=== PATIENT | male | born 1970 | race Caucasian/White ===

== ENCOUNTER 2018-12-05 16:38 | Emergency (ER) | payer OTHER ==
[2018-12-05] MEDS ORDERED: SODIUM CHLORIDE 0.9% 500 ML 500 ML IV STA (16:55)
[2018-12-05] MEDS ORDERED: MORPHINE SULFATE 4 MG/ML SYRINGE IV STA (16:55)
[2018-12-05] MEDS ORDERED: ONDANSETRON 4 MG/2 ML VIAL IVP STA (16:55)
--- NOTE | 2018-12-05 16:56 | ED ---
Abdominal Pain HPI - General Chief Complaint: Abdominal Pain Stated Complaint: ABDOMINAL PAIN Time Seen by Provider: 12/05/18 16:48 Source: patient Mode of arrival: ambulatory Limitations: no limitations - History of Present Illness Initial Comments: 48-year-old male presenting today for chief complaint of right upper quadrant abdominal pain he states the past 4 days he has had right upper quadrant abdominal pain that began after stretching he states he did not feel pop is definitely musculoskeletal. He states he developed a sensation which was more crampy in nature on and off the past few months but did not think much of it. He denies noticing a specific pattern with ingestion of food or liquids. He states it has been constant since Thursday states it is sharp stabbing. He denies any upper chest pain shortness of breath. There is no radiation the pain he states he has had a previous appendectomy. She denies any issues of the gallbladder to his knowledge. He denies any fever or chills night sweats cough he denies any nausea vomiting or diarrhea. Patient states his last bowel movement was yesterday states it was normal. He denies any melena or hematochezia. Remaining review of systems negative upon arrival patient appears nontoxic, does appear uncomfortable holding the right upper quadrant. Patient was sent for further evaluation from a urgent care facility where he initially presented. She denies history of peptic ulcer disease or chronic NSAID use. Patient denies history of alcohol abuse. Patient denies fever but was febrile upon arrival. - Related Data Previous Rx's Medication Instructions Recorded Amoxic-Pot Clav 875-125Mg 1 tab PO Q12HR 7 Days #14 tablet 12/05/18 [Augmentin 875-125] Ciprofloxacin HCl [Cipro] 500 mg PO BID 7 Days #14 tab 12/05/18 metroNIDAZOLE [Flagyl] 500 mg PO Q8HR 7 Days #21 tab 12/05/18 Allergies Allergy/AdvReac Type Severity Reaction Status Date / Time No Known Allergies Allergy Verified 12/05/18 16:47 Review of Systems ROS Statement: Those systems with pertinent positive or pertinent negative responses have been documented in the HPI. ROS Other: All systems not noted in ROS Statement are negative. Past Medical History Past Medical History: No Reported History History of Any Multi-Drug Resistant Organisms: None Reported Past Surgical History: Appendectomy Past Psychological History: No Psychological Hx Reported Smoking Status: Never smoker Past Alcohol Use History: None Reported Past Drug Use History: None Reported General Exam - General Exam Comments Initial Comments: General: The patient is awake and alert, in no distress, and does not appear acutely ill. Eye: Pupils are equal, round and reactive to light, extra-ocular movements are intact. No nystagmus. There is normal conjunctiva bilaterally. No signs of icterus. Ears, nose, mouth and throat: There are moist mucous membranes and no oral lesions. Neck: The neck is supple, there is no tenderness or JVD. Cardiovascular: There is a regular rate and rhythm. No murmur, rub or gallop is appreciated. Respiratory: Lungs are clear to auscultation, respirations are non-labored, breath sounds are equal. No wheezes, stridor, rales, or rhonchi. Gastrointestinal: Soft, non-distended, patient is tender in the right upper quadrant the abdomen positive Magallon sign without masses or organomegaly noted. There is no rebound or guarding present. No CVA tenderness. Bowel sounds are unremarkable. Musculoskeletal: Normal ROM, no tenderness. Strength 5/5. Sensation intact. Pulses equal bilaterally 2+. Neurological: A&O x 3. CN II-XII intact, There are no obvious motor or sensory deficits. Coordination appears grossly intact. Speech is normal. Skin: Skin is warm and dry and no rashes or lesions are noted. Psychiatric: Cooperative, appropriate mood & affect, normal judgment. Limitations: no limitations Course Vital Signs 12/05/18 12/05/18 12/05/18 16:45 17:51 18:40 Temperature 98.7 F 100.4 F H 100.5 F H Pulse Rate 103 H 92 88 Respiratory 18 16 16 Rate Blood Pressure 137/99 111/74 127/79 O2 Sat by Pulse 98 96 95 Oximetry 12/05/18 20:13 Temperature 100 F H Pulse Rate 81 Respiratory 16 Rate Blood Pressure 126/80 O2 Sat by Pulse 95 Oximetry Medical Decision Making - Medical Decision Making 48-year-old male presented with upper quadrant abdominal pain. Patient had low- grade fever. Patient is mild leukocytosis. Patient is tender on examination. Ultrasound revealed no evidence of gallbladder disease. This was initial impression given physical examination history. However on CT the abdomen and pelvis there was a colitis present at the fracture which happens to be on the right side the abdomen for this patient anatomically. This correlates clinically and anatomically with patient's area of pain. Patient has mild fat stranding. There is no evidence of dense of pneumoperitoneum or perforation. Patient's pain was controlled Toradol emergency department. At this time after reviewing imaging studies with attending provider who did evaluate patient in person and recommended discharge of patient with outpatient oral antibiotics regime. Patient is given a starter pack of Tylenol No. 3 for pain management proper use was discussed. I discussed return parameters including risk of perforation with patient patient is to be limited to emergency department for worsening pain. Patient verbalized understanding of importance of return parameters as well as outpatient follow-up with gastroenterology. Pt discharged he was agreeable with plan preferring outpatient treatment. - Lab Data Result diagrams: 12/05/18 17:12 12/05/18 17:12 Lab Results 12/05/18 12/05/18 12/05/18 Range/Units 17:10 17:12 17:12 WBC 12.9 H (3.8-10.6) k/uL RBC 4.94 (4.30-5.90) m/uL Hgb 14.7 (13.0-17.5) gm/dL Hct 43.6 (39.0-53.0) % MCV 88.3 (80.0-100.0) fL MCH 29.8 (25.0-35.0) pg MCHC 33.7 (31.0-37.0) g/dL RDW 13.0 (11.5-15.5) % Plt Count 279 (150-450) k/uL Neutrophils % 73 % Lymphocytes % 19 % Monocytes % 6 % Eosinophils % 1 % Basophils % 0 % Neutrophils # 9.3 H (1.3-7.7) k/uL Lymphocytes # 2.4 (1.0-4.8) k/uL Monocytes # 0.8 (0-1.0) k/uL Eosinophils # 0.1 (0-0.7) k/uL Basophils # 0.1 (0-0.2) k/uL Sodium 139 (137-145) mmol/L Potassium 4.4 (3.5-5.1) mmol/L Chloride 105 (98-107) mmol/L Carbon Dioxide 24 (22-30) mmol/L Anion Gap 10 mmol/L BUN 26 H (9-20) mg/dL Creatinine 1.30 H (0.66-1.25) mg/dL Est GFR (CKD-EPI)AfAm 74 (>60 ml/min/1.73 sqM) Est GFR (CKD-EPI)NonAf 64 (>60 ml/min/1.73 sqM) Glucose 100 H (74-99) mg/dL Plasma Lactic Acid Trevor (0.7-2.0) mmol/L Calcium 9.5 (8.4-10.2) mg/dL Total Bilirubin 1.7 H (0.2-1.3) mg/dL AST 32 (17-59) U/L ALT 50 (21-72) U/L Alkaline Phosphatase 89 (38-126) U/L Troponin I (0.000-0.034) ng/mL Total Protein 7.6 (6.3-8.2) g/dL Albumin 4.6 (3.5-5.0) g/dL Amylase 75 (30-110) U/L Lipase 111 (23-300) U/L Urine Color Yellow Urine Appearance Clear (Clear) Urine pH 6.5 (5.0-8.0) Ur Specific Neola 1.031 (1.001-1.035) Urine Protein 1+ H (Negative) Urine Glucose (UA) Negative (Negative) Urine Ketones Negative (Negative) Urine Blood Negative (Negative) Urine Nitrite Negative (Negative) Urine Bilirubin Negative (Negative) Urine Urobilinogen <2.0 (<2.0) mg/dL Ur Leukocyte Esterase Negative (Negative) Urine RBC 1 (0-5) /hpf Urine WBC 1 (0-5) /hpf Urine Mucus Rare H (None) /hpf 12/05/18 12/05/18 Range/Units 17:12 17:12 WBC (3.8-10.6) k/uL RBC (4.30-5.90) m/uL Hgb (13.0-17.5) gm/dL Hct (39.0-53.0) % MCV (80.0-100.0) fL MCH (25.0-35.0) pg MCHC (31.0-37.0) g/dL RDW (11.5-15.5) % Plt Count (150-450) k/uL Neutrophils % % Lymphocytes % % Monocytes % % Eosinophils % % Basophils % % Neutrophils # (1.3-7.7) k/uL Lymphocytes # (1.0-4.8) k/uL Monocytes # (0-1.0) k/uL Eosinophils # (0-0.7) k/uL Basophils # (0-0.2) k/uL Sodium (137-145) mmol/L Potassium (3.5-5.1) mmol/L Chloride (98-107) mmol/L Carbon Dioxide (22-30) mmol/L Anion Gap mmol/L BUN (9-20) mg/dL Creatinine (0.66-1.25) mg/dL Est GFR (CKD-EPI)AfAm (>60 ml/min/1.73 sqM) Est GFR (CKD-EPI)NonAf (>60 ml/min/1.73 sqM) Glucose (74-99) mg/dL Plasma Lactic Acid Trevor 0.8 (0.7-2.0) mmol/L Calcium (8.4-10.2) mg/dL Total Bilirubin (0.2-1.3) mg/dL AST (17-59) U/L ALT (21-72) U/L Alkaline Phosphatase (38-126) U/L Troponin I <0.012 (0.000-0.034) ng/mL Total Protein (6.3-8.2) g/dL Albumin (3.5-5.0) g/dL Amylase (30-110) U/L Lipase (23-300) U/L Urine Color Urine Appearance (Clear) Urine pH (5.0-8.0) Ur Specific Neola (1.001-1.035) Urine Protein (Negative) Urine Glucose (UA) (Negative) Urine Ketones (Negative) Urine Blood (Negative) Urine Nitrite (Negative) Urine Bilirubin (Negative) Urine Urobilinogen (<2.0) mg/dL Ur Leukocyte Esterase (Negative) Urine RBC (0-5) /hpf Urine WBC (0-5) /hpf Urine Mucus (None) /hpf Disposition Clinical Impression: Colitis, Right sided abdominal pain Disposition: HOME SELF-CARE Condition: Good Instructions (If sedation given, give patient instructions): Colitis (ED) Additional Instructions: Please use medication as discussed. Please follow-up with family doctor in the next 2 days, and gastroenterology with the next 2-3 days. Please return to emergency room if the symptoms increase or worsen or for any other concerns. Prescriptions: Amoxic-Pot Clav 875-125Mg [Augmentin 875-125] 1 tab PO Q12HR 7 Days #14 tablet Ciprofloxacin HCl [Cipro] 500 mg PO BID 7 Days #14 tab metroNIDAZOLE [Flagyl] 500 mg PO Q8HR 7 Days #21 tab Is patient prescribed a controlled substance at d/c from ED?: No Referrals: None,Stated [Primary Care Provider] - 1-2 days [facility] Yosvany osuna [NON-STAFF] - 1-2 days Samir Yi MD [STAFF PHYSICIAN] - 1-2 days Time of Disposition: 19:51
[2018-12-05 17:33] LABS: Basophils # (A) 0.1 k/uL (0-0.2); Basophils % (A) 0 %; Eosinophils # (A) 0.1 k/uL (0-0.7); Eosinophils % (A) 1 %; HCT 43.6 % (39.0-53.0); HGB 14.7 gm/dL (13.0-17.5); Lymphocytes # (A) 2.4 k/uL (1.0-4.8); Lymphocytes % (A) 19 %; MCH 29.8 pg (25.0-35.0); MCHC 33.7 g/dL (31.0-37.0); MCV 88.3 fL (80.0-100.0); Mean Platelet Volume 7.6; Monocytes # (A) 0.8 k/uL (0-1.0); Monocytes % (A) 6 %; Neutrophils # (A) 9.3 k/uL (1.3-7.7); Neutrophils % (A) 73 %; Platelet Count 279 k/uL (150-450); RBC 4.94 m/uL (4.30-5.90); WBC 12.9 k/uL (3.8-10.6)
[2018-12-05 17:42] LABS: Albumin 4.6 g/dL (3.5-5.0); Calcium 9.5 mg/dL (8.4-10.2); Potassium 4.4 mmol/L (3.5-5.1); Total Bilirubin 1.7 mg/dL (0.2-1.3); Total Protein 7.6 g/dL (6.3-8.2)
[2018-12-05 17:51] LABS: Appearance,Urine Clear (Clear); Bilirubin,Urine Negative (Negative); Blood,Urine Negative (Negative); Color,Urine Yellow; Glucose,Urine (UA) Negative (Negative); Ketones,Urine Negative (Negative); Leukocyte Esterase,Urine Negative (Negative); Mucus,Urine Rare /hpf; Nitrite,Urine Negative (Negative); PH, Urine 6.5 (5.0-8.0); Protein,Urine 1+ (Negative); RBC,Urine 1 /hpf (0-5); Specific Gravity,Urine 1.031 (1.001-1.035); Urobilinogen,Urine <2.0 mg/dL (<2.0); WBC,Urine 1 /hpf (0-5)
[2018-12-05 17:52] VITALS: RESP 16
--- NOTE | 2018-12-05 17:52 | US ---
EXAMINATION TYPE: US abdomen limited DATE OF EXAM: 12/05/2018 COMPARISON: NONE CLINICAL HISTORY: GB/ RUQ. RUQ pain, Not NPO EXAM MEASUREMENTS: Liver Length: 19.4 cm Gallbladder Wall: 0.2 cm Right Kidney: 10.0 x 5.9 x 4.9 cm normal corticomedullary differentiation. No evidence of hydronephr osis. Pancreas: Obscured by bowel gas Liver: appears enlarged in size and slightly echogenic in appearance Gallbladder: Normal. Evidence for sonographic Magallon's sign: neg CBD: Unable to be evaluated- Obscured by overlying bowel gas IMPRESSION: Normal sonographic evaluation of the right upper quadrant.
--- NOTE | 2018-12-05 18:50 | XR ---
EXAMINATION TYPE: XR chest 2V DATE OF EXAM: 12/05/2018 COMPARISON: NONE HISTORY: Right upper quadrant abdominal pain TECHNIQUE: Frontal and lateral views of the chest are obtained. FINDINGS: There is no focal air space opacity, pleural effusion, or pneumothorax seen. The cardiac silhouette size is within normal limits. The osseous structures are intact. IMPRESSION: No acute cardiopulmonary process.
[2018-12-05] MEDS ORDERED: KETOROLAC 30 MG/ML 1 ML VIAL IVP STA (18:58)
--- NOTE | 2018-12-05 19:19 | CT ---
EXAMINATION TYPE: CT abdomen pelvis w con DATE OF EXAM: 12/05/2018 COMPARISON: Abdominal ultrasound earlier the same day HISTORY: Abdominal pain and fever CT DLP: 1391.3 mGycm Automated exposure control for dose reduction was used. TECHNIQUE: Helical acquisition of images was performed from the lung bases through the pelvis. CONTRAST: Performed without Oral Contrast and with IV Contrast, patient injected with 100 mL of Isovue 300. FINDINGS: LUNG BASES: Minimal bibasilar subsegmental atelectasis. LIVER/GB: No significant abnormality. PANCREAS: No significant abnormality. SPLEEN: No significant abnormality. ADRENALS: No significant abnormality. KIDNEYS: 1.3 cm region of low attenuation not consistent with simple fluid is seen of the right midpo le. FREE AIR: No free air is visualized. RETROPERITONEAL ADENOPATHY: None REPRODUCTIVE ORGANS: No significant abnormality URINARY BLADDER: No significant abnormality. PELVIC ADENOPATHY: None visualized. OSSEOUS STRUCTURES: No significant abnormality is seen. BOWEL: Minimal circumferential wall thickening is seen of the splenic flexure with surrounding mesen teric fat inflammation. Some enlarged adjacent lymph nodes are seen in this area. Appendix is normal. IMPRESSION: 1. Circumferential short segment wall thickening of the splenic flexure with adjacent mesenteric fat inflammation. Findings are favored to represent a focal colitis. 2. 1.3 cm low-attenuation right sided renal lesion. A dedicated CT utilizing renal mass protocol is r ecommended and a nonemergent basis for further evaluation.
[2018-12-05] MEDS ORDERED: SODIUM CHLORIDE 0.9% 1,000 ML IV ONE (19:20)
[2018-12-05] MEDS ORDERED: LEVOFLOXACIN 750 MG TAB PO STA (19:46)
[2018-12-05] MEDS ORDERED: metroNIDAZOLE 500 MG TAB PO STA (19:48)
[2018-12-05] MEDS ORDERED: ACET/COD 300 MG/30 MG STARTER PACK 6 TAB BTL PO STA (19:51)
[2018-12-05 20:14] VITALS: BP 126/80; PULSE 81; TEMP 100
== END 2018-12-05 20:15 | disposition home or self-care (01) ==
LOC: EC 16:38
DX: K52.9 Noninfective gastroenteritis and colitis, unspecified (principal); D72.829 Elevated white blood cell count, unspecified; Z90.89 Acquired absence of other organs
CPT/HCPCS: 36415; 80053; 82150; 83605; 83690; 84484; 85025; 81001; 87040; 71046; 76705; 74177; 99284; 96365; 96375; 96361 ×2; J0696; J1885; Q9967